=== PATIENT | male | born 1950 | race Caucasian/White ===

== ENCOUNTER 2019-05-24 22:50 | Inpatient (IN) | payer MEDICARE, OTHER ==
[~2019-05-24] VITALS: Ht 170.2 cm; Wt 102.1 kg
[2019-05-24 22:50] VITALS: BP 139/65
[2019-05-24 23:45] LABS: APPEARANCE,URINE CLEAR; BILIRUBIN, URINE NEGATIVE (NEGATIVE); COLOR,URINE PALE YELLOW; GLUCOSE, URINE (UA) NEGATIVE (NEGATIVE); KETONES,URINE NEGATIVE (NEGATIVE); LEUKOCYTE ESTERASE ,URINE NEGATIVE (NEGATIVE); NITRITE,URINE NEGATIVE (NEGATIVE); PH,URINE 5 (4.5-8.0); PROTEIN,URINE 3+ (NEGATIVE); UROBILINOGEN,URINE NORMAL MG/DL (0.0-1.0)
[2019-05-24 23:46] LABS: BASOPHILS % (AUTO) 0.7 % (0.0-2.0); EOSINOPHILS % (AUTO) 0.5 % (0.0-3.0); HEMATOCRIT 32.7 % (42.0-52.0); LYMPHOCYTES % (AUTO) 9.8 % (20.0-45.0); MEAN CORPUSCULAR VOLUME 82 FL (80-99); MONOCYTES % (AUTO) 9.2 % (1.0-10.0); NEUTROPHILS % (AUTO) 79.9 % (45.0-75.0); PLATELET COUNT 323 K/UL (150-450); RED BLOOD COUNT 3.98 M/UL (4.70-6.10); RED CELL DISTRIBUTION WIDTH 13.2 % (11.6-14.8); WHITE BLOOD COUNT 12.2 K/UL (4.8-10.8)
[2019-05-25] VITALS (8 sets, daily range): BP systolic 97–133; BP diastolic 48–69
[2019-05-25 00:14] LABS: ANION GAP 12 mmol/L (5-15); BLOOD UREA NITROGEN 37 mg/dL (7-18); CALCIUM 9.2 MG/DL (8.5-10.1); CARBON DIOXIDE 26 MMOL/L (21-32); CHLORIDE 98 MMOL/L (98-107); POTASSIUM 4.2 MMOL/L (3.5-5.1); SODIUM 136 MMOL/L (136-145)
[2019-05-25 00:22] LABS: ALANINE AMINOTRANSFERASE 19 U/L (12-78); ALBUMIN/GLOBULIN RATIO 0.8 (1.0-2.7); ALKALINE PHOSPHATASE 47 U/L (46-116); ASPARTATE AMINO TRANSFERASE 10 U/L (15-37); BILIRUBIN,TOTAL 0.4 MG/DL (0.2-1.0); CKMB 1.9 NG/ML (0.0-3.6)
--- NOTE | 2019-05-25 00:51 | Emergency Room Report ---
History of Present Illness General Chief Complaint: Chest Pain Source: Patient Present Illness HPI 68-year-old male presents to emergency room with chest pain. Patient reports history of open heart surgery CABG in 2011 status post RI in 2017 with stent placement. Patient reports that he missed his morning medications including his hypertensive medication diuretic, and anticoagulation Pradaxa. He took his nighttime medications as prescribed. Patient reports he is feeling short of breath and having multiple coughing attacks. Patient was given 1 spray nitroglycerin which improves patient's chest pain from 8 out of 10 to 6 out of 10. He was also given 325 mg aspirin. Patient reports his pain is substernal pressure-like sensation, nonradiating. Allergies: Coded Allergies: CLOPIDOGREL (Verified Allergy, Unknown, 05/24/19) Nursing Documentation-PMH Hx Cardiac Problems: Yes - RI Hx Hypertension: Yes Hx Diabetes: Yes Review of Systems Constitutional: Denies: chills, fever Respiratory: Reports: shortness of breath; Denies: cough Cardiovascular: Reports: chest pain; Denies: palpitations Gastrointestinal: Denies: diarrhea, vomiting Genitourinary: Denies: hematuria, pain Musculoskeletal: Denies: joint swelling Skin: Denies: rash, lesions Neurological: Denies: headache, dizziness Physical Exam Vital Signs Date Time Temp Pulse Resp B/P (MAP) Pulse Ox O2 Delivery O2 Flow Rate FiO2 05/24/19 22:44 99.1 73 19 139/65 (89) 95 Room Air Sp02 EP Interpretation: reviewed General Appearance: well appearing, no apparent distress, non-toxic Head: normocephalic, atraumatic Eyes: bilateral eye normal inspection ENT: hearing grossly normal, EOM grossly intact, moist mucus membranes Neck: supple Respiratory: lungs clear, normal breath sounds, no rhonchi, no respiratory distress, no retraction, no accessory muscle use, rales, speaking full sentences Cardiovascular #1: regular rate, rhythm, normal capillary refill, edema - 2+ lower extremity nonpitting Cardiovascular #2: 2+ radial (R), 2+ radial (L) Gastrointestinal: soft, non-distended Rectal: deferred Musculoskeletal: moves extm spontaneously, no lower extremity edema Neurologic: grossly normal Psychiatric: mood/affect normal Skin: warm/dry, normal turgor Medical Decision Making Diagnostic Impression: Primary Impression: Chest pain ER Course 68-year-old male presents with chest pain. Patient has significant history of cardiac disease including CABG and RI. Patient also missed morning medications. Patient found to have lower extremity edema on exam and mild rales. Differential includes ACS versus fluid overload versus atypical chest pain We will perform EKG, lab testing, chest x-ray. Laboratory Tests Test 05/24/19 23:20 White Blood Count 12.2 K/UL (4.8-10.8) H Red Blood Count 3.98 M/UL (4.70-6.10) L Hemoglobin 11.0 G/DL (14.2-18.0) L Hematocrit 32.7 % (42.0-52.0) L Mean Corpuscular Volume 82 FL (80-99) Mean Corpuscular Hemoglobin 27.7 PG (27.0-31.0) Mean Corpuscular Hemoglobin Concent 33.7 G/DL (32.0-36.0) Red Cell Distribution Width 13.2 % (11.6-14.8) Platelet Count 323 K/UL (150-450) Mean Platelet Volume 6.1 FL (6.5-10.1) L Neutrophils (%) (Auto) 79.9 % (45.0-75.0) H Lymphocytes (%) (Auto) 9.8 % (20.0-45.0) L Monocytes (%) (Auto) 9.2 % (1.0-10.0) Eosinophils (%) (Auto) 0.5 % (0.0-3.0) Basophils (%) (Auto) 0.7 % (0.0-2.0) Urine Color Pale yellow Urine Appearance Clear Urine pH 5 (4.5-8.0) Urine Specific [place] 1.010 (1.005-1.035) Urine Protein 3+ (NEGATIVE) H Urine Glucose (UA) Negative (NEGATIVE) Urine Ketones Negative (NEGATIVE) Urine Blood Negative (NEGATIVE) Urine Nitrite Negative (NEGATIVE) Urine Bilirubin Negative (NEGATIVE) Urine Urobilinogen Normal MG/DL (0.0-1.0) Urine Leukocyte Esterase Negative (NEGATIVE) Urine RBC 0-2 /HPF (0 - 0) H Urine WBC 0 /HPF (0 - 0) Urine Squamous Epithelial Cells None /LPF (NONE/OCC) Urine Bacteria None /HPF (NONE) Sodium Level 136 MMOL/L (136-145) Potassium Level 4.2 MMOL/L (3.5-5.1) Chloride Level 98 MMOL/L (98-107) Carbon Dioxide Level 26 MMOL/L (21-32) Anion Gap 12 mmol/L (5-15) Blood Urea Nitrogen 37 mg/dL (7-18) H Creatinine 2.0 MG/DL (0.55-1.30) H Estimate Glomerular Filtration Rate 33.3 mL/min (>60) Glucose Level 108 MG/DL (74-106) H Calcium Level 9.2 MG/DL (8.5-10.1) Total Bilirubin 0.4 MG/DL (0.2-1.0) Aspartate Amino Transferase (AST) 10 U/L (15-37) L Alanine Aminotransferase (ALT) 19 U/L (12-78) Alkaline Phosphatase 47 U/L (46-116) Creatine Kinase MB 1.9 NG/ML (0.0-3.6) Troponin I 0.041 ng/mL (0.000-0.056) Pro-B-Type Natriuretic Peptide 955 pg/mL (0-125) H Total Protein 8.9 G/DL (6.4-8.2) H Albumin 4.0 G/DL (3.4-5.0) Globulin 4.9 g/dL Albumin/Globulin Ratio 0.8 (1.0-2.7) L EKG Diagnostic Results EKG Time: 21:33 Rate: normal Rhythm: NSR Other Impression Normal sinus rhythm rate of 72 T wave inversions lateral leads, mild elevation in lead III Rhythm Strip Diag. Results Rhythm Strip Time: 00:00 EP Interpretation: yes Rate: 62 Rhythm: NSR Reevaluation Time: 00:58 Last Vital Signs Date Time Temp Pulse Resp B/P (MAP) Pulse Ox O2 Delivery O2 Flow Rate FiO2 05/24/19 22:50 99.1 73 19 139/65 95 Room Air Reevaluation Impression Patient's care discussed with Dr. Funk, Pt admitted to telemetry Disposition: ADMITTED INPATIENT Condition: Serious Referrals: [facility],REFERRING (PCP) Jp Jauregui M.D. May 25, 2019 00:51
[2019-05-25] MEDS ORDERED: CYMBALTA20 MG ORAL (03:21)
[2019-05-25] MEDS ORDERED: FENOFIBRATE48 MG ORAL (03:21)
[2019-05-25] MEDS ORDERED: FUROSEMIDE40 MG/5 ML ORAL (03:21)
[2019-05-25] MEDS ORDERED: UROXATRAL10 MG ORAL (03:21)
[2019-05-25] MEDS ORDERED: FERROUS GLUCON324 M1 PO (03:21)
[2019-05-25] MEDS ORDERED: LIORESAL20 MG ORAL (03:21)
[2019-05-25] MEDS ORDERED: ISOSORBIDE MONO20 MG PO (03:21)
[2019-05-25] MEDS ORDERED: EFFIENT10 MG PO (03:21)
[2019-05-25] MEDS ORDERED: NORVASC5 MG ORAL (03:21)
[2019-05-25] MEDS ORDERED: POTASSIUM99 M3 PO (03:21)
[2019-05-25] MEDS ORDERED: BENAZEPRIL HCL40 MG ORAL (03:21)
[2019-05-25] MEDS ORDERED: RANEXA1000 MG ORAL (03:21)
[2019-05-25] MEDS ORDERED: NOVOLIN 70100 UNIT/1 SUBQ (03:21)
[2019-05-25] MEDS ORDERED: MAGNESIUM100 MG PO (03:21)
[2019-05-25] MEDS ORDERED: COREG6.25 MG ORAL (03:21)
[2019-05-25] MEDS ORDERED: OMEPRAZOLE20 M2 ORAL (03:21)
[2019-05-25] MEDS ORDERED: TRAMADOL HCL50 MG ORAL (03:21)
[2019-05-25] MEDS ORDERED: PRADAXA110 MG PO (03:21)
[2019-05-25] MEDS ORDERED: LIPITOR80 MG ORAL (03:21)
[2019-05-25] MEDS ORDERED: traMADol 50mg tab ORAL PRN (08:00)
[2019-05-25] MEDS ORDERED: Ferrous Gluconate 324 MG TAB ORAL SCH (09:00)
[2019-05-25] MEDS ORDERED: Imdur 30mg tab ORAL SCH (09:00)
[2019-05-25] MEDS ORDERED: Mag Plus Protein 133mg Tab ORAL SCH (09:00)
[2019-05-25 10:10] LABS: ALANINE AMINOTRANSFERASE 18 U/L (12-78); ALBUMIN 3.6 G/DL (3.4-5.0); ALBUMIN/GLOBULIN RATIO 0.8 (1.0-2.7); ALKALINE PHOSPHATASE 45 U/L (46-116); ANION GAP 9 mmol/L (5-15); ASPARTATE AMINO TRANSFERASE 12 U/L (15-37); BILIRUBIN,TOTAL 0.5 MG/DL (0.2-1.0); BLOOD UREA NITROGEN 41 mg/dL (7-18); CALCIUM 8.9 MG/DL (8.5-10.1); CARBON DIOXIDE 27 MMOL/L (21-32); CHLORIDE 100 MMOL/L (98-107); CHOLESTEROL 145 MG/DL (< 200); CREATININE 2.2 MG/DL (0.55-1.30); HDL CHOLESTEROL 35 MG/DL (40-60); PHOSPHORUS 3.7 MG/DL (2.5-4.9); POTASSIUM 3.8 MMOL/L (3.5-5.1); SODIUM 136 MMOL/L (136-145); TRIGLYCERIDES 189 MG/DL (30-150)
[2019-05-25] MEDS: Ranolazine 500mg tab ORAL SCH ×2 (10:21→20:30)
[2019-05-25] MEDS: Aspirin Baby 81mg ORAL SCH (10:21)
[2019-05-25] MEDS: Furosemide 40mg tab ORAL SCH (10:22)
[2019-05-25] MEDS: Imdur 30mg tab ORAL SCH ×3 (10:36→18:18)
[2019-05-25] MEDS: Dabigatran 150mg cap ORAL SCH ×2 (11:00→20:30)
--- NOTE | 2019-05-25 12:24 | Consultation ---
History of Present Illness General Date patient seen: May 25, 2019 Chief Complaint: Chest Pain Present Illness HPI 68-year-old male with hx of open heart surgery CABG in 2010 status post OR in 2017 with stent presented to ER with chest pain. He missed his morning medications including his hypertensive medication diuretic, and anticoagulation Pradaxa. he is feeling short of breath and having multiple coughing attacks. Patient was given 1 spray nitroglycerin which improves patient's chest pain from 8 out of 10 to 6 out of 10. He was also given 325 mg aspirin. Patient reports his pain is substernal pressure-like sensation, nonradiating Allergies: Coded Allergies: CLOPIDOGREL (Verified Allergy, Unknown, 05/24/19) Medication History Scheduled Alfuzosin 10Mg (Uroxatral), 10 MG ORAL DAILY, (Reported) Amlodipine Besylate (Norvasc), 5 MG ORAL DAILY, (Reported) Atorvastatin (Lipitor), 80 MG ORAL BEDTIME, (Reported) Baclofen (Baclofen), 10 MG ORAL TWICE A DAY, (Reported) Benazepril Hcl* (Benazepril Hcl*), 40 MG ORAL DAILY, (Reported) Carvedilol (Coreg), 6.25 MG ORAL TWICE A DAY, (Reported) Dabigatran Etexilate Mesylate (Pradaxa), 150 MG PO TWICE A DAY, (Reported) Duloxetine (Cymbalta), 60 MG ORAL DAILY, (Reported) Fenofibrate Nanocrystallized (Fenofibrate), 48 MG ORAL DAILY, (Reported) Ferrous Gluconate (Ferrous Gluconate), 324 MG PO DAILY, (Reported) Furosemide (Furosemide), 40 MG ORAL DAILY, (Reported) Hum Insulin Nph/Reg Insulin Hm (Novolin 70-30 100 Unit/Ml Vial), 240 SUBQ BEFORE DINNER, (Reported) Isosorbide Mononitrate (Isosorbide Mononitrate), 60 MG PO TID, (Reported) Magnesium Amino Acid Chelate (Magnesium), 64 MG PO TWICE A DAY, (Reported) Omeprazole (Omeprazole), 20 MG ORAL DAILY, (Reported) Potassium Gluconate (Potassium), 10 MEQ PO DAILY, (Reported) Prasugrel Hcl (Effient), 10 MG PO DAILY, (Reported) Ranolazine (Ranexa), 500 MG ORAL TWICE A DAY, (Reported) Tramadol Hcl* (Ultram*), 50 MG ORAL Q6H, (Reported) Patient History Healthcare decision maker Resuscitation status Advanced Directive on File Past Medical/Surgical History Past Medical/Surgical History: (1) History of hypertension (2) Depression (3) Diabetes mellitus (4) Stented coronary artery (5) Hx of CABG Review of Systems Constitutional: Reports: no symptoms Physical Exam General Appearance: WD/WN, no apparent distress Lines, tubes and drains: peripheral HEENT: normocephalic Neck: non-tender Respiratory/Chest: chest wall non-tender Breasts: no masses Cardiovascular/Chest: normal peripheral pulses Abdomen: normal bowel sounds Genitourinary/Rectal: normal genital exam Last 24 Hour Vital Signs Date Time Temp Pulse Resp B/P (MAP) Pulse Ox O2 Delivery O2 Flow Rate FiO2 05/25/19 10:36 124/69 05/25/19 10:21 63 124/69 05/25/19 10:18 63 124/69 (87) 05/25/19 09:00 74 05/25/19 08:00 98.1 67 20 97/51 (66) 91 05/25/19 04:00 99.0 18 18 115/58 (77) 96 05/25/19 04:00 68 05/25/19 03:46 Room Air 05/25/19 03:41 Room Air 05/25/19 03:05 99.1 63 19 109/63 95 Room Air 05/25/19 02:17 99.1 63 19 109/63 95 Room Air 05/25/19 01:00 99.1 69 19 118/65 95 Room Air 05/24/19 22:50 99.1 73 19 139/65 95 Room Air 05/24/19 22:50 73 19 Room Air 05/24/19 22:44 99.1 73 19 139/65 (89) 95 Room Air Intake and Output 05/24/19 05/25/19 19:00 07:00 # Voids 1 Laboratory Tests Test 05/24/19 23:20 05/25/19 09:35 White Blood Count 12.2 K/UL (4.8-10.8) H Pending Red Blood Count 3.98 M/UL (4.70-6.10) L Pending Hemoglobin 11.0 G/DL (14.2-18.0) L Pending Hematocrit 32.7 % (42.0-52.0) L Pending Mean Corpuscular Volume 82 FL (80-99) Pending Mean Corpuscular Hemoglobin 27.7 PG (27.0-31.0) Pending Mean Corpuscular Hemoglobin Concent 33.7 G/DL (32.0-36.0) Pending Red Cell Distribution Width 13.2 % (11.6-14.8) Pending Platelet Count 323 K/UL (150-450) Pending Mean Platelet Volume 6.1 FL (6.5-10.1) L Pending Neutrophils (%) (Auto) 79.9 % (45.0-75.0) H Pending Lymphocytes (%) (Auto) 9.8 % (20.0-45.0) L Pending Monocytes (%) (Auto) 9.2 % (1.0-10.0) Pending Eosinophils (%) (Auto) 0.5 % (0.0-3.0) Pending Basophils (%) (Auto) 0.7 % (0.0-2.0) Pending Urine Color Pale yellow Urine Appearance Clear Urine pH 5 (4.5-8.0) Urine Specific [place] 1.010 (1.005-1.035) Urine Protein 3+ (NEGATIVE) H Urine Glucose (UA) Negative (NEGATIVE) Urine Ketones Negative (NEGATIVE) Urine Blood Negative (NEGATIVE) Urine Nitrite Negative (NEGATIVE) Urine Bilirubin Negative (NEGATIVE) Urine Urobilinogen Normal MG/DL (0.0-1.0) Urine Leukocyte Esterase Negative (NEGATIVE) Urine RBC 0-2 /HPF (0 - 0) H Urine WBC 0 /HPF (0 - 0) Urine Squamous Epithelial Cells None /LPF (NONE/OCC) Urine Bacteria None /HPF (NONE) Sodium Level 136 MMOL/L (136-145) 136 MMOL/L (136-145) Potassium Level 4.2 MMOL/L (3.5-5.1) 3.8 MMOL/L (3.5-5.1) Chloride Level 98 MMOL/L (98-107) 100 MMOL/L (98-107) Carbon Dioxide Level 26 MMOL/L (21-32) 27 MMOL/L (21-32) Anion Gap 12 mmol/L (5-15) 9 mmol/L (5-15) Blood Urea Nitrogen 37 mg/dL (7-18) H 41 mg/dL (7-18) H Creatinine 2.0 MG/DL (0.55-1.30) H 2.2 MG/DL (0.55-1.30) H Estimat Glomerular Filtration Rate 33.3 mL/min (>60) 29.8 mL/min (>60) Glucose Level 108 MG/DL (74-106) H 171 MG/DL (74-106) H Calcium Level 9.2 MG/DL (8.5-10.1) 8.9 MG/DL (8.5-10.1) Total Bilirubin 0.4 MG/DL (0.2-1.0) 0.5 MG/DL (0.2-1.0) Aspartate Amino Transf (AST/SGOT) 10 U/L (15-37) L 12 U/L (15-37) L Alanine Aminotransferase (ALT/SGPT) 19 U/L (12-78) 18 U/L (12-78) Alkaline Phosphatase 47 U/L (46-116) 45 U/L (46-116) L Creatine Kinase MB 1.9 NG/ML (0.0-3.6) Troponin I 0.041 ng/mL (0.000-0.056) 0.111 ng/mL (0.000-0.056) Pro-B-Type Natriuretic Peptide 955 pg/mL (0-125) H Total Protein 8.9 G/DL (6.4-8.2) H 8.1 G/DL (6.4-8.2) Albumin 4.0 G/DL (3.4-5.0) 3.6 G/DL (3.4-5.0) Globulin 4.9 g/dL 4.5 g/dL Albumin/Globulin Ratio 0.8 (1.0-2.7) L 0.8 (1.0-2.7) L Phosphorus Level 3.7 MG/DL (2.5-4.9) Magnesium Level 1.8 MG/DL (1.8-2.4) Triglycerides Level 189 MG/DL (30-150) H Cholesterol Level 145 MG/DL (< 200) LDL Cholesterol 74 mg/dL (<100) HDL Cholesterol 35 MG/DL (40-60) L Cholesterol/HDL Ratio 4.1 (3.3-4.4) Height (Feet): 5 Height (Inches): 7.00 Weight (Pounds): 225 Medications Current Medications Medications (Trade) Dose Ordered Sig/Sebastian Route PRN Reason Start Time Stop Time Status Last Admin Dose Admin Amino Acids/ Magnesium (Mg-Plus) 64 mg BID ORAL 05/25/19 09:00 06/24/19 08:59 UNV Aspirin (ASA) 81 mg DAILY ORAL 05/25/19 09:00 06/24/19 08:59 05/25/19 10:21 Atorvastatin Calcium (Lipitor) 80 mg BEDTIME ORAL 05/25/19 21:00 06/24/19 20:59 Baclofen (Lioresal) 20 mg BID ORAL 05/25/19 09:00 06/24/19 08:59 05/25/19 10:21 Carvedilol (Coreg) 3.125 mg EVERY 12 HOURS ORAL 05/25/19 09:00 06/24/19 08:59 05/25/19 10:21 Dabigatran (Pradaxa) 150 mg EVERY 12 HOURS ORAL 05/25/19 11:00 06/24/19 10:59 05/25/19 11:00 Duloxetine HCl (Cymbalta) 60 mg DAILY ORAL 05/25/19 09:00 06/24/19 08:59 05/25/19 10:21 Fenofibrate (Tricor) 48 mg DAILY ORAL 05/25/19 09:00 06/24/19 08:59 UNV Ferrous Gluconate (Fergon) 324 mg DAILY ORAL 05/25/19 09:00 06/24/19 08:59 05/25/19 10:36 Furosemide (Lasix) 40 mg DAILY ORAL 05/25/19 09:00 06/24/19 08:59 05/25/19 10:22 Isosorbide Mononitrate (Imdur) 60 mg TID ORAL 05/25/19 09:00 06/24/19 08:59 Future hold 05/25/19 10:36 Potassium Chloride (K-Dur) 10 meq DAILY ORAL 05/25/19 09:00 06/24/19 08:59 05/25/19 10:22 Ranolazine (Ranexa ER 500mg) 500 mg Q12HR ORAL 05/25/19 09:00 06/24/19 08:59 05/25/19 10:21 Tramadol HCl (Ultram) 50 mg Q6H PRN ORAL Breakthrough pain 05/25/19 08:00 06/01/19 07:59 Assessment/Plan Problem List: (1) ACS (acute coronary syndrome) ICD Codes: I24.9 - Acute ischemic heart disease, unspecified SNOMED: 123199695 (2) Diabetes mellitus ICD Codes: E11.9 - Type 2 diabetes mellitus without complications SNOMED: 80375788 (3) CAD (coronary artery disease) ICD Codes: I25.10 - Atherosclerotic heart disease of [place] coronary artery without angina pectoris SNOMED: 70633113 (4) Chronic anticoagulation 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 SNOMED: 917327299 (5) Hx of CABG ICD Codes: Z95.1 - Presence of aortocoronary bypass graft SNOMED: 138934253, 470416058 (6) Stented coronary artery ICD Codes: Z95.5 - Presence of coronary angioplasty implant and graft SNOMED: 49264899, 255212229 (7) History of OR (myocardial infarction) ICD Codes: I25.2 - Old myocardial infarction SNOMED: 929017933 (8) History of hypertension ICD Codes: Z86.79 - Personal history of other diseases of the circulatory system SNOMED: 278607492 (9) Depression ICD Codes: F32.9 - Major depressive disorder, single episode, unspecified SNOMED: 48064035 Assessment/Plan: serial ekg, troponin, echo cardiology to see f/u wbc monitor BP continue antihypertensive and antiplatelet agents dvt prophylaxis. Deisy Kan MD May 25, 2019 12:23
[2019-05-25 13:27] LABS: CREATINE KINASE 96 U/L (26-308)
--- NOTE | 2019-05-25 13:27 | Diagnostic Imaging Report ---
Indication: Dyspnea Comparison: None A single view chest radiograph was obtained. Findings: No definite infiltrate or pulmonary vascular congestion identified. Sternotomy noted. The heart is enlarged. The aorta is mildly enlarged consistent with atherosclerotic vascular disease. The bones are osteopenic. Impression: No acute disease
--- NOTE | 2019-05-25 16:08 | Diagnostic Imaging Report ---
Indication:Elevated Bun and Creatinine. Technique: Grayscale and duplex Doppler imaging of the kidneys performed. Comparison: None Findings: The size, contour, and echogenicity of both kidneys are within normal limits. There is no hydronephrosis.. The right kidney measures 11 cm. in length. The left kidney measures 10.8 cm. in length. There are multiple tiny cysts in both kidneys. The IVC is patent. Urinary bladder is unremarkable. IMPRESSION: Negative ultrasound the kidneys. Renal cysts
--- NOTE | 2019-05-25 16:52 | Consultation ---
Consult Note Consult Note I was asked to eval at the request of dr live for elevated Cr patient interviewed and examined patient friend at bed side patient knows and was told to have had kidney problem in the past admitted to [facility] for chest pain has BPH and cardiac disease ER 68-year-old male presents to emergency room with chest pain. Patient reports history of open heart surgery CABG in 2010 status post [place] in 2017 with stent placement. Patient reports that he missed his morning medications including his hypertensive medication diuretic, and anticoagulation Pradaxa. He took his nighttime medications as prescribed. Patient reports he is feeling short of breath and having multiple coughing attacks. Patient was given 1 spray nitroglycerin which improves patient's chest pain from 8 out of 10 to 6 out of 10. He was also given 325 mg aspirin. Patient reports his pain is substernal pressure-like sensation, nonradiating. Allergies: CLOPIDOGREL (Verified Allergy, Unknown, 05/24/19) Hx Cardiac Problems: Yes - SC Hx Hypertension: Yes Hx Diabetes: Yes Assessment/Plan Renal failure: Likely chronic due to Diabetic and Hypertensive kidney disease ( 3+ Protein) Partly acute due to cardiac issue and diuretics ACS / CAD / s/p CABGS DM HTN Depression Anemia CHF , Cardiomyopathy with Ej Fx 40% 2D echo Kidney MAIKEL avoid nephrotoxics BP and BS in check Urine studies per orders Nguyễn De La Rosa MD May 25, 2019 16:52
[2019-05-25] MEDS: Docusate 100mg cap ORAL SCH (18:18)
[2019-05-25] MEDS: Magnesium Chloride w/Calcium Tab ORAL SCH (18:18)
--- NOTE | 2019-05-25 18:42 | History & Physical ---
History and Physical History & Physicial Dictated for Int Med-Dr Galdamez no. [id number] Marco Damico MD May 25, 2019 18:42
[2019-05-25] MEDS ORDERED: Tamsulosin 0.4mg cap ORAL SCH (21:00)
[2019-05-25] MEDS ORDERED: Atorvastatin 80mg tab ORAL SCH (21:00)
[2019-05-25 21:33] LABS: APPEARANCE,URINE CLEAR; COLOR,URINE PALE YELLOW
[2019-05-25 21:34] LABS: BILIRUBIN, URINE NEGATIVE (NEGATIVE); GLUCOSE, URINE (UA) NEGATIVE (NEGATIVE); KETONES,URINE NEGATIVE (NEGATIVE); LEUKOCYTE ESTERASE ,URINE NEGATIVE (NEGATIVE); NITRITE,URINE NEGATIVE (NEGATIVE); PH,URINE 5 (4.5-8.0); PROTEIN,URINE NEGATIVE (NEGATIVE); UROBILINOGEN,URINE NORMAL MG/DL (0.0-1.0)
[2019-05-26] VITALS: BP 135/73
[2019-05-26 04:00] VITALS: BP_SYST 130; BP_DIAS 7; BP_DIAS 75
--- NOTE | 2019-05-26 07:11 | Cardiology Progress Note ---
Assessment/Plan Assessment/Plan cp ./ nstemi cad s/p cabg and stent hs of afib s/p cardioversion htn dm renal insuf ? chronicity bph hep b/c hs of substanc abuse quit 1979 admission ekg sig abn and concerning no old ekt to compare , repeat trop and ekg ntp asa statin , may need invasive evaluation in setting of his abn ekg no ekg available here or at [facility] for comparison [id number] Objective Last 24 Hour Vital Signs Date Time Temp Pulse Resp B/P (MAP) Pulse Ox O2 Delivery O2 Flow Rate FiO2 05/26/19 04:00 97.8 71 20 130/75 (93) 98 05/26/19 03:40 55 05/26/19 00:00 98.2 63 20 135/73 (93) 98 05/25/19 23:31 62 05/25/19 21:00 Room Air 05/25/19 20:33 61 125/60 05/25/19 20:00 98.2 61 20 125/60 (81) 96 05/25/19 19:04 62 05/25/19 18:18 124/48 05/25/19 16:00 97.1 59 20 124/48 (73) 96 05/25/19 16:00 53 05/25/19 13:00 135/64 05/25/19 12:00 97.8 70 20 133/55 (81) 98 05/25/19 12:00 57 05/25/19 10:36 124/69 05/25/19 10:21 63 124/69 05/25/19 10:18 63 124/69 (87) 05/25/19 09:00 Room Air 05/25/19 09:00 74 05/25/19 08:00 98.1 67 20 97/51 (66) 91 Intake and Output 05/25/19 05/26/19 19:00 07:00 Intake Total 390 ml Balance 390 ml Intake Oral 390 ml # Voids 2 3 Laboratory Tests Test 05/25/19 09:35 05/25/19 20:41 White Blood Count Pending Red Blood Count Pending Hemoglobin Pending Hematocrit Pending Mean Corpuscular Volume Pending Mean Corpuscular Hemoglobin Pending Mean Corpuscular Hemoglobin Concent Pending Red Cell Distribution Width Pending Platelet Count Pending Mean Platelet Volume Pending Neutrophils (%) (Auto) Pending Lymphocytes (%) (Auto) Pending Monocytes (%) (Auto) Pending Eosinophils (%) (Auto) Pending Basophils (%) (Auto) Pending Sodium Level 136 MMOL/L (136-145) Potassium Level 3.8 MMOL/L (3.5-5.1) Chloride Level 100 MMOL/L (98-107) Carbon Dioxide Level 27 MMOL/L (21-32) Anion Gap 9 mmol/L (5-15) Blood Urea Nitrogen 41 mg/dL (7-18) H Creatinine 2.2 MG/DL (0.55-1.30) H Estimat Glomerular Filtration Rate 29.8 mL/min (>60) Glucose Level 171 MG/DL (74-106) H Uric Acid 8.9 MG/DL (2.6-7.2) H Calcium Level 8.9 MG/DL (8.5-10.1) Phosphorus Level 3.7 MG/DL (2.5-4.9) Magnesium Level 1.8 MG/DL (1.8-2.4) Total Bilirubin 0.5 MG/DL (0.2-1.0) Aspartate Amino Transf (AST/SGOT) 12 U/L (15-37) L Alanine Aminotransferase (ALT/SGPT) 18 U/L (12-78) Alkaline Phosphatase 45 U/L (46-116) L Total Creatine Kinase 96 U/L (26-308) Troponin I 0.111 ng/mL (0.000-0.056) Total Protein 8.1 G/DL (6.4-8.2) Albumin 3.6 G/DL (3.4-5.0) Globulin 4.5 g/dL Albumin/Globulin Ratio 0.8 (1.0-2.7) L Triglycerides Level 189 MG/DL (30-150) H Cholesterol Level 145 MG/DL (< 200) LDL Cholesterol 74 mg/dL (<100) HDL Cholesterol 35 MG/DL (40-60) L Cholesterol/HDL Ratio 4.1 (3.3-4.4) Urine Color Pale yellow Urine Appearance Clear Urine pH 5 (4.5-8.0) Urine Specific [place] 1.015 (1.005-1.035) Urine Protein Negative (NEGATIVE) Urine Glucose (UA) Negative (NEGATIVE) Urine Ketones Negative (NEGATIVE) Urine Blood Negative (NEGATIVE) Urine Nitrite Negative (NEGATIVE) Urine Bilirubin Negative (NEGATIVE) Urine Urobilinogen Normal MG/DL (0.0-1.0) Urine Leukocyte Esterase Negative (NEGATIVE) Urine RBC 0-2 /HPF (0 - 0) H Urine WBC 0-2 /HPF (0 - 0) Urine Squamous Epithelial Cells None /LPF (NONE/OCC) Urine Bacteria Few /HPF (NONE) Urine Eosinophils None seen (NONE SEEN) Urine Osmolality 342 mOsm/kg (429-449) L Urine Random Creatinine Pending Urine Random Microalbumin Pending Urine Random Sodium 60 mmol/L (20-110) Urine Microalbumin/Creatinine Ratio Pending Akash Bill MD May 26, 2019 07:11
--- NOTE | 2019-05-26 07:17 | History and Physical Report ---
DATE OF ADMISSION: 05/25/2019 CHIEF COMPLAINT: The patient is a 68-year-old white male, who presents with a chief complaint of chest pain. HISTORY OF PRESENT ILLNESS: The patient has a history of coronary artery disease. The patient is status post coronary artery bypass graft. The patient states history of present illness began approximately 7:30 on 05/24/2019. The patient began to experience chest pain. Chest pain was substernal. There was no radiation to the jaw or to the shoulder. The patient states chest pain lasted approximately 2 hours. The patient presented to [facility] emergency room. The patient is admitted for chest pain rule out acute coronary syndrome. REVIEW OF SYSTEMS: CONSTITUTIONAL: The patient denies weight loss or weight gain. The patient denies fevers or chills. HEENT: The patient denies ear or throat pain. The patient denies headache. CARDIOVASCULAR: The patient complains of chest pain as above. The patient denies palpitations. ABDOMEN: The patient denies nausea, vomiting, diarrhea, or constipation. GENITOURINARY: The patient denies dysuria or increased frequency of urination. NEUROMUSCULAR: The patient denies seizures or generalized weakness. PAST MEDICAL HISTORY: Significant for: 1. Coronary artery disease, status post myocardial infarction in 2010. 2. Diabetes type 2. 3. Hypertension. 4. Chronic obstructive pulmonary disease. PAST SURGICAL HISTORY: Significant for: 1. Coronary artery bypass graft in 2010. 2. Cardiac angioplasty with stent placed in 2015. CURRENT MEDICATIONS: 1. Alfuzosin 10 mg p.o. daily. 2. Amlodipine 5 mg p.o. daily. 3. Atorvastatin 80 mg p.o. daily. 4. Baclofen 20 mg p.o. twice daily p.r.n. 5. Benazepril 40 mg p.o. daily. 6. Carvedilol 6.25 mg p.o. twice daily. 7. Pradaxa 150 mg p.o. twice daily. 8. Duloxetine 60 mg p.o. daily. 9. Fenofibrate 48 mg p.o. daily. 10. Iron gluconate 324 mg p.o. daily. 11. Furosemide 40 mg p.o. daily. 12. NPH insulin. 13. Novolin 70/30 insulin 24 units subcutaneously at bedtime. 14. Isosorbide mononitrate 60 mg p.o. 3 times daily. 15. Magnesium 64 mg p.o. twice daily. 16. Omeprazole 20 mg p.o. daily. 17. Potassium gluconate 10 mEq p.o. daily. 18. Effient 10 mg p.o. daily. 19. Ranexa 500 mg p.o. twice daily. 20. Tramadol 50 mg p.o. q.6 hours p.r.n. ALLERGIES: To clopidogrel. SOCIAL HISTORY: The patient is . The patient denies tobacco use having quit in 2010. The patient denies alcohol use. PHYSICAL EXAMINATION: VITAL SIGNS: Temperature 99.1, respirations 19, pulse 73, blood pressure 139/65. GENERAL: The patient is well-developed, well-nourished white male, in no apparent distress. HEENT: Eyes, pupils are equal and responsive to light and accommodation. Extraocular movements are intact. NECK: Supple without lymphadenopathy. CHEST: Lungs are clear to auscultation bilaterally without wheezes or rales. CARDIOVASCULAR: Regular rhythm and rate. S1, S2 are normal without murmurs, rubs, or gallops. ABDOMEN: Soft, nontender, and nondistended. Positive bowel sounds. No evidence of hepatosplenomegaly. Currently, no rebound or guarding noted. EXTREMITIES: Negative for clubbing, cyanosis, or edema. NEUROMUSCULAR: Cranial nerves II through XII are grossly intact without focal deficits. Motor strength is 5/5 bilaterally. Deep tendon reflexes are 2+ plantar. RECTAL/GENITAL: Refused. LABORATORY STUDIES: WBC 12.2, hemoglobin 11.0, hematocrit 32.7, platelets 323,000. Sodium 136, potassium 4.2, chloride 98, CO2 26, BUN 37, creatinine 2.0, glucose 108. BNP elevated at 955. Troponin 0.041. Chest x-ray was reported as no acute disease. EKG demonstrated normal sinus rhythm with sinus arrhythmia. There are no acute ST changes or Q-waves noted. ASSESSMENT: This is a 68-year-old white male. 1. Chest pain. 2. Coronary artery disease. 3. Congestive heart failure. 4. Acute renal failure. 5. Diabetes type 2. 6. Hypertension. TREATMENT: 1. Chest pain/history of coronary artery disease/congestive heart failure. Cardiology consultation has been obtained with Dr. Akash Bill. The patient states he had a recent stress test. We will follow recommendations of Cardiology. 2. Diabetes type 2. A NovoLog sliding scale has been instituted. 3. Acute renal failure. A Nephrology consultation is pending with Dr. Nguyễn De La Rosa. 4. Hypertension. Continue Coreg as above. Marco Damico M.D. DR: CARIN JOB#: [id number] CC:
[2019-05-26 07:34] LABS: HEMOGLOBIN 9.8 G/DL (14.2-18.0); RED BLOOD COUNT 3.69 M/UL (4.70-6.10); WHITE BLOOD COUNT 7.7 K/UL (4.8-10.8)
[2019-05-26 07:35] LABS: BASOPHILS % (AUTO) 0.5 % (0.0-2.0); EOSINOPHILS % (AUTO) 0.1 % (0.0-3.0); MEAN CORPUSCULAR VOLUME 89 FL (80-99); MONOCYTES % (AUTO) 11.4 % (1.0-10.0); NEUTROPHILS % (AUTO) 66.7 % (45.0-75.0); PLATELET COUNT 295 K/UL (150-450); RED CELL DISTRIBUTION WIDTH 14.8 % (11.6-14.8)
[2019-05-26 08:00] VITALS: BP 150/98
[2019-05-26 08:05] LABS: BASOPHILS % (AUTO) 0.7 % (0.0-2.0); EOSINOPHILS % (AUTO) 1.5 % (0.0-3.0); HEMATOCRIT 31.7 % (42.0-52.0); HEMOGLOBIN 10.6 G/DL (14.2-18.0); LYMPHOCYTES % (AUTO) 27.7 % (20.0-45.0); MEAN CORPUSCULAR VOLUME 82 FL (80-99); MONOCYTES % (AUTO) 12.5 % (1.0-10.0); NEUTROPHILS % (AUTO) 57.5 % (45.0-75.0); PLATELET COUNT 303 K/UL (150-450); RED BLOOD COUNT 3.85 M/UL (4.70-6.10); RED CELL DISTRIBUTION WIDTH 13.3 % (11.6-14.8); WHITE BLOOD COUNT 8.7 K/UL (4.8-10.8)
[2019-05-26 08:20] LABS: CREATINE KINASE 89 U/L (26-308); GAMMA GLUTAMYL TRANSPEPTIDASE 21 U/L (5-85)
[2019-05-26 08:37] LABS: ALANINE AMINOTRANSFERASE 19 U/L (12-78); ALBUMIN 3.7 G/DL (3.4-5.0); ALBUMIN/GLOBULIN RATIO 0.8 (1.0-2.7); ALKALINE PHOSPHATASE 38 U/L (46-116); ANION GAP 10 mmol/L (5-15); ASPARTATE AMINO TRANSFERASE 15 U/L (15-37); BILIRUBIN,TOTAL 0.6 MG/DL (0.2-1.0); BLOOD UREA NITROGEN 37 mg/dL (7-18); CALCIUM 8.7 MG/DL (8.5-10.1); CARBON DIOXIDE 25 MMOL/L (21-32); CHLORIDE 100 MMOL/L (98-107); CREATININE 2.2 MG/DL (0.55-1.30); FERRITIN 58 NG/ML (8-388); PHOSPHORUS 4.6 MG/DL (2.5-4.9); POTASSIUM 3.9 MMOL/L (3.5-5.1); SODIUM 135 MMOL/L (136-145)
[2019-05-26 08:56] LABS: % IRON SATURATION 10 % (15-50); IRON 33 ug/dL (50-175); TOTAL IRON BINDING CAPACITY 333 ug/dL (250-450)
[2019-05-26] MEDS: Docusate 100mg cap ORAL SCH ×3 (09:27→19:44)
[2019-05-26] MEDS: Imdur 30mg tab ORAL SCH ×3 (09:27→19:44)
[2019-05-26] MEDS: Furosemide 40mg tab ORAL SCH (09:28)
[2019-05-26] MEDS: Magnesium Chloride w/Calcium Tab ORAL SCH ×2 (09:28→19:44)
[2019-05-26] MEDS: Aspirin Baby 81mg ORAL SCH (09:28)
[2019-05-26] MEDS: Ranolazine 500mg tab ORAL SCH (09:28)
[2019-05-26 12:00] VITALS: BP 135/97
--- NOTE | 2019-05-26 12:03 | Pulmonology Progress Note ---
Assessment/Plan Problems: (1) ACS (acute coronary syndrome) (2) Diabetes mellitus (3) CAD (coronary artery disease) (4) Chronic anticoagulation (5) Hx of CABG (6) Stented coronary artery (7) History of [place] (myocardial infarction) (8) History of hypertension (9) Depression Assessment/Plan needs cardiac cath b/o of hx of CABG and STents in the past symptomatic management monitor BP symptomatic treatment. dvt prophylaxis. Subjective ROS Limited/Unobtainable: No Constitutional: Reports: no symptoms HEENT: Repors: no symptoms Respiratory: Reports: no symptoms Allergies: Coded Allergies: CLOPIDOGREL (Verified Allergy, Unknown, 05/24/19) Objective Last 24 Hour Vital Signs Date Time Temp Pulse Resp B/P (MAP) Pulse Ox O2 Delivery O2 Flow Rate FiO2 05/26/19 09:27 150/98 05/26/19 09:27 59 150/98 05/26/19 08:47 Room Air 05/26/19 08:00 97.9 59 20 150/98 (115) 98 05/26/19 07:43 59 05/26/19 04:00 97.8 71 20 130/75 (93) 98 05/26/19 03:40 55 05/26/19 00:00 98.2 63 20 135/73 (93) 98 05/25/19 23:31 62 05/25/19 21:00 Room Air 05/25/19 20:33 61 125/60 05/25/19 20:00 98.2 61 20 125/60 (81) 96 05/25/19 19:04 62 05/25/19 18:18 124/48 05/25/19 16:00 97.1 59 20 124/48 (73) 96 05/25/19 16:00 53 05/25/19 13:00 135/64 Intake and Output 05/25/19 05/26/19 19:00 07:00 Intake Total 390 ml Balance 390 ml Intake Oral 390 ml # Voids 2 3 General Appearance: WD/WN HEENT: normocephalic, atraumatic Respiratory/Chest: chest wall non-tender, lungs clear Cardiovascular: normal peripheral pulses, normal rate Abdomen: normal bowel sounds, soft, non tender Genitourinary: normal external genitalia Extremities: no clubbing 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 Laboratory Tests 05/25/19 20:41: Urine Color Pale yellow, Urine Appearance Clear, Urine pH 5, Urine Specific [place] 1.015, Urine Protein Negative, Urine Glucose (UA) Negative, Urine Ketones Negative, Urine Blood Negative, Urine Nitrite Negative, Urine Bilirubin Negative, Urine Urobilinogen Normal, Urine Leukocyte Esterase Negative, Urine RBC 0-2H, Urine WBC 0-2, Urine Squamous Epithelial Cells None, Urine Bacteria Few, Urine Eosinophils None seen, Urine Osmolality 342L, Urine Random Creatinine [Pending], Urine Random Microalbumin [Pending], Urine Random Sodium 60, Urine Microalbumin/Creatinine Ratio [Pending] 05/26/19 06:16: White Blood Count 8.7, Red Blood Count 3.85L, Hemoglobin 10.6L, Hematocrit 31.7L , Mean Corpuscular Volume 82, Mean Corpuscular Hemoglobin 27.6, Mean Corpuscular Hemoglobin Concent 33.6, Red Cell Distribution Width 13.3, Platelet Count 303, Mean Platelet Volume 6.2L, Neutrophils (%) (Auto) 57.5, Lymphocytes ( %) (Auto) 27.7, Monocytes (%) (Auto) 12.5H, Eosinophils (%) (Auto) 1.5, Basophils (%) (Auto) 0.7, Erythrocyte Sedimentation Rate 42H, Sodium Level 135L , Potassium Level 3.9, Chloride Level 100, Carbon Dioxide Level 25, Anion Gap 10 , Blood Urea Nitrogen 37H, Creatinine 2.2H, Estimat Glomerular Filtration Rate 29.8, Glucose Level 138H, Hemoglobin A1c 6.5H, Uric Acid 10.0H, Calcium Level 8.7, Phosphorus Level 4.6, Magnesium Level 1.8, Iron Level 33L, Total Iron Binding Capacity 333, Percent Iron Saturation 10L, Unsaturated Iron Binding 300 , Ferritin 58, Total Bilirubin 0.6, Gamma Glutamyl Transpeptidase 21, Aspartate Amino Transf (AST/SGOT) 15, Alanine Aminotransferase (ALT/SGPT) 19, Alkaline Phosphatase 38L, Total Creatine Kinase 89, Troponin I 0.041, C-Reactive Protein , Quantitative 1.8H, Pro-B-Type Natriuretic Peptide [Pending], Total Protein 8.5H, Albumin 3.7, Globulin 4.8, Albumin/Globulin Ratio 0.8L, Vitamin B12 Level 438, Folate [Pending], Thyroid Stimulating Hormone (TSH) 1.422 Current Medications Medications (Trade) Dose Ordered Sig/Sebastian Route PRN Reason Start Time Stop Time Status Last Admin Dose Admin Aspirin (ASA) 81 mg DAILY ORAL 05/25/19 09:00 06/24/19 08:59 05/26/19 09:28 Atorvastatin Calcium (Lipitor) 80 mg BEDTIME ORAL 05/25/19 21:00 06/24/19 20:59 05/25/19 20:30 Baclofen (Lioresal) 20 mg BID ORAL 05/25/19 09:00 06/24/19 08:59 05/26/19 09:28 Carvedilol (Coreg) 3.125 mg EVERY 12 HOURS ORAL 05/25/19 09:00 06/24/19 08:59 05/26/19 09:27 Docusate Sodium (Colace) 100 mg THREE TIMES A DAY ORAL 05/25/19 18:00 06/24/19 17:59 05/26/19 09:27 Duloxetine HCl (Cymbalta) 60 mg DAILY ORAL 05/25/19 09:00 06/24/19 08:59 05/26/19 09:27 Fenofibrate (Tricor) 54 mg DAILY ORAL 05/25/19 14:00 06/24/19 13:59 05/26/19 09:27 Furosemide (Lasix) 40 mg DAILY ORAL 05/25/19 09:00 06/24/19 08:59 05/26/19 09:28 Isosorbide Mononitrate (Imdur) 60 mg TID ORAL 05/25/19 09:00 06/24/19 08:59 Future hold 05/26/19 09:27 Magnesium Chloride (Slow-Mag) 1 tab BID ORAL 05/25/19 18:00 06/24/19 17:59 05/26/19 09:28 Pantoprazole (Protonix) 40 mg EVERY 12 HOURS ORAL 05/25/19 21:00 06/24/19 20:59 05/26/19 09:28 Potassium Chloride (K-Dur) 10 meq DAILY ORAL 05/25/19 09:00 06/24/19 08:59 05/26/19 09:27 Ranolazine (Ranexa ER 500mg) 500 mg Q12HR ORAL 05/25/19 09:00 06/24/19 08:59 05/26/19 09:28 Tamsulosin HCl (Flomax) 0.4 mg BEDTIME ORAL 05/25/19 21:00 06/24/19 20:59 05/25/19 20:33 Tramadol HCl (Ultram) 50 mg Q6H PRN ORAL Breakthrough pain 05/25/19 08:00 06/01/19 07:59 Deisy Kan MD May 26, 2019 12:03
--- NOTE | 2019-05-26 12:11 | Nephrology Progress Note ---
Assessment/Plan Problem List: (1) Renal failure (ARF), acute on chronic (2) Diabetic nephropathy (3) History of [place] (myocardial infarction) (4) History of hypertension (5) ACS (acute coronary syndrome) (6) Cardiomyopathy Assessment Renal failure: Likely chronic due to Diabetic and Hypertensive kidney disease ( 3+ Protein) Partly acute due to cardiac issue and diuretics ACS / CAD / s/p CABGS DM HTN Depression Anemia CHF , Cardiomyopathy with Ej Fx 40% Plan 2D echo 40% EjFx Kidney MAIKEL- Negative avoid nephrotoxics BP and BS in check Urine studies per orders IV Iron once Subjective ROS Limited/Unobtainable: No Constitutional: Reports: malaise Objective Objective Last 24 Hour Vital Signs Date Time Temp Pulse Resp B/P (MAP) Pulse Ox O2 Delivery O2 Flow Rate FiO2 05/26/19 09:27 150/98 05/26/19 09:27 59 150/98 05/26/19 08:47 Room Air 05/26/19 08:00 97.9 59 20 150/98 (115) 98 05/26/19 07:43 59 05/26/19 04:00 97.8 71 20 130/75 (93) 98 05/26/19 03:40 55 05/26/19 00:00 98.2 63 20 135/73 (93) 98 05/25/19 23:31 62 05/25/19 21:00 Room Air 05/25/19 20:33 61 125/60 05/25/19 20:00 98.2 61 20 125/60 (81) 96 05/25/19 19:04 62 05/25/19 18:18 124/48 05/25/19 16:00 97.1 59 20 124/48 (73) 96 05/25/19 16:00 53 05/25/19 13:00 135/64 Intake and Output 05/25/19 05/26/19 19:00 07:00 Intake Total 390 ml Balance 390 ml Intake Oral 390 ml # Voids 2 3 Laboratory Tests 05/25/19 20:41: Urine Color Pale yellow, Urine Appearance Clear, Urine pH 5, Urine Specific [place] 1.015, Urine Protein Negative, Urine Glucose (UA) Negative, Urine Ketones Negative, Urine Blood Negative, Urine Nitrite Negative, Urine Bilirubin Negative, Urine Urobilinogen Normal, Urine Leukocyte Esterase Negative, Urine RBC 0-2H, Urine WBC 0-2, Urine Squamous Epithelial Cells None, Urine Bacteria Few, Urine Eosinophils None seen, Urine Osmolality 342L, Urine Random Creatinine [Pending], Urine Random Microalbumin [Pending], Urine Random Sodium 60, Urine Microalbumin/Creatinine Ratio [Pending] 05/26/19 06:16: White Blood Count 8.7, Red Blood Count 3.85L, Hemoglobin 10.6L, Hematocrit 31.7L , Mean Corpuscular Volume 82, Mean Corpuscular Hemoglobin 27.6, Mean Corpuscular Hemoglobin Concent 33.6, Red Cell Distribution Width 13.3, Platelet Count 303, Mean Platelet Volume 6.2L, Neutrophils (%) (Auto) 57.5, Lymphocytes ( %) (Auto) 27.7, Monocytes (%) (Auto) 12.5H, Eosinophils (%) (Auto) 1.5, Basophils (%) (Auto) 0.7, Erythrocyte Sedimentation Rate 42H, Sodium Level 135L , Potassium Level 3.9, Chloride Level 100, Carbon Dioxide Level 25, Anion Gap 10 , Blood Urea Nitrogen 37H, Creatinine 2.2H, Estimat Glomerular Filtration Rate 29.8, Glucose Level 138H, Hemoglobin A1c 6.5H, Uric Acid 10.0H, Calcium Level 8.7, Phosphorus Level 4.6, Magnesium Level 1.8, Iron Level 33L, Total Iron Binding Capacity 333, Percent Iron Saturation 10L, Unsaturated Iron Binding 300 , Ferritin 58, Total Bilirubin 0.6, Gamma Glutamyl Transpeptidase 21, Aspartate Amino Transf (AST/SGOT) 15, Alanine Aminotransferase (ALT/SGPT) 19, Alkaline Phosphatase 38L, Total Creatine Kinase 89, Troponin I 0.041, C-Reactive Protein , Quantitative 1.8H, Pro-B-Type Natriuretic Peptide [Pending], Total Protein 8.5H, Albumin 3.7, Globulin 4.8, Albumin/Globulin Ratio 0.8L, Vitamin B12 Level 438, Folate [Pending], Thyroid Stimulating Hormone (TSH) 1.422 Height (Feet): 5 Height (Inches): 7.00 Weight (Pounds): 225 General Appearance: no apparent distress Cardiovascular: normal rate Respiratory/Chest: decreased breath sounds Abdomen: soft Nguyễn De La Rosa MD May 26, 2019 12:11
[2019-05-26] MEDS ORDERED: Iron Sucrose 200 MG in NS 110 ML IV SCH (13:00)
--- NOTE | 2019-05-26 14:11 | CDS Physician Query ---
Clarification is required for compliance, coding accuracy, and to reflect severity of illness for this patient Dear Akash Gonzáles MD Date: 05/26/2019 [facility] Hand/CDS Name: Shashi Cazares The patient is a 68-year-old white male, who presents with a chief complaint of chest pain. "CHF" documented in Consultation notes BNP: 955 ECHO EjF: 40% Please Clarify: Acuity [] Acute [] Chronic [] Acute on Chronic Type [] Systolic [] Diastolic [] Systolic & Diastolic (Combined) [] Other: Present on Admission: [] Yes [] No [] Clinically Undetermined Physician signature Date Please also document in your Progress Notes and/or Discharge Summary and indicate if the condition was present on admission. GUSTAVO
[2019-05-26 16:00] VITALS: BP 140/95
--- NOTE | 2019-05-26 16:07 | Internal Med Progress Note ---
Subjective Date of Service: May 26, 2019 Physician Name Marco Damico Attending Physician Mariano Galdamez MD Current Medications Medications (Trade) Dose Ordered Sig/Sebastian Route PRN Reason Start Time Stop Time Status Last Admin Dose Admin Allopurinol (allopurinoL) 300 mg DAILY ORAL 05/27/19 09:00 06/26/19 08:59 Aspirin (ASA) 81 mg DAILY ORAL 05/25/19 09:00 06/24/19 08:59 05/26/19 09:28 Atorvastatin Calcium (Lipitor) 80 mg BEDTIME ORAL 05/25/19 21:00 06/24/19 20:59 05/25/19 20:30 Baclofen (Lioresal) 20 mg BID ORAL 05/25/19 09:00 06/24/19 08:59 05/26/19 09:28 Carvedilol (Coreg) 3.125 mg EVERY 12 HOURS ORAL 05/25/19 09:00 06/24/19 08:59 05/26/19 09:27 Docusate Sodium (Colace) 100 mg THREE TIMES A DAY ORAL 05/25/19 18:00 06/24/19 17:59 05/26/19 13:20 Duloxetine HCl (Cymbalta) 60 mg DAILY ORAL 05/25/19 09:00 06/24/19 08:59 05/26/19 09:27 Fenofibrate (Tricor) 54 mg DAILY ORAL 05/25/19 14:00 06/24/19 13:59 05/26/19 09:27 Furosemide (Lasix) 40 mg DAILY ORAL 05/25/19 09:00 06/24/19 08:59 05/26/19 09:28 Isosorbide Mononitrate (Imdur) 60 mg TID ORAL 05/25/19 09:00 06/24/19 08:59 Future hold 05/26/19 13:20 Magnesium Chloride (Slow-Mag) 1 tab BID ORAL 05/25/19 18:00 06/24/19 17:59 05/26/19 09:28 Pantoprazole (Protonix) 40 mg EVERY 12 HOURS ORAL 05/25/19 21:00 06/24/19 20:59 05/26/19 09:28 Potassium Chloride (K-Dur) 10 meq DAILY ORAL 05/25/19 09:00 06/24/19 08:59 05/26/19 09:27 Ranolazine (Ranexa ER 500mg) 500 mg Q12HR ORAL 05/25/19 09:00 06/24/19 08:59 05/26/19 09:28 Tamsulosin HCl (Flomax) 0.4 mg BEDTIME ORAL 05/25/19 21:00 06/24/19 20:59 05/25/19 20:33 Tramadol HCl (Ultram) 50 mg Q6H PRN ORAL Breakthrough pain 05/25/19 08:00 06/01/19 07:59 Allergies: Coded Allergies: CLOPIDOGREL (Verified Allergy, Unknown, 05/24/19) ROS Limited/Unobtainable: No Constitutional: Reports: no symptoms HEENT: Reports: no symptoms Cardiovascular: Reports: chest pain Respiratory: Reports: no symptoms Gastrointestinal/Abdominal: Reports: no symptoms Genitourinary: Reports: no symptoms Neurologic/Psychiatric: Reports: no symptoms Subjective 68 YO M with history of coronary artery dis and previous myocardial infarction admitted with chest pain. Now NSTEMI. Cover for Int Rd-Dr Galdamez Objective Last Vital Signs Date Time Temp Pulse Resp B/P (MAP) Pulse Ox O2 Delivery O2 Flow Rate FiO2 05/26/19 13:20 135/97 05/26/19 12:00 98.1 59 22 97 05/26/19 08:47 Room Air Laboratory Tests Test 05/25/19 20:41 05/26/19 06:16 Urine Color Pale yellow Urine Appearance Clear Urine pH 5 (4.5-8.0) Urine Specific [place] 1.015 (1.005-1.035) Urine Protein Negative (NEGATIVE) Urine Glucose (UA) Negative (NEGATIVE) Urine Ketones Negative (NEGATIVE) Urine Blood Negative (NEGATIVE) Urine Nitrite Negative (NEGATIVE) Urine Bilirubin Negative (NEGATIVE) Urine Urobilinogen Normal MG/DL (0.0-1.0) Urine Leukocyte Esterase Negative (NEGATIVE) Urine RBC 0-2 /HPF (0 - 0) H Urine WBC 0-2 /HPF (0 - 0) Urine Squamous Epithelial Cells None /LPF (NONE/OCC) Urine Bacteria Few /HPF (NONE) Urine Eosinophils None seen (NONE SEEN) Urine Osmolality 342 mOsm/kg (429-449) L Urine Random Creatinine Pending Urine Random Microalbumin Pending Urine Random Sodium 60 mmol/L (20-110) Urine Microalbumin/Creatinine Ratio Pending White Blood Count 8.7 K/UL (4.8-10.8) Red Blood Count 3.85 M/UL (4.70-6.10) L Hemoglobin 10.6 G/DL (14.2-18.0) L Hematocrit 31.7 % (42.0-52.0) L Mean Corpuscular Volume 82 FL (80-99) Mean Corpuscular Hemoglobin 27.6 PG (27.0-31.0) Mean Corpuscular Hemoglobin Concent 33.6 G/DL (32.0-36.0) Red Cell Distribution Width 13.3 % (11.6-14.8) Platelet Count 303 K/UL (150-450) Mean Platelet Volume 6.2 FL (6.5-10.1) L Neutrophils (%) (Auto) 57.5 % (45.0-75.0) Lymphocytes (%) (Auto) 27.7 % (20.0-45.0) Monocytes (%) (Auto) 12.5 % (1.0-10.0) H Eosinophils (%) (Auto) 1.5 % (0.0-3.0) Basophils (%) (Auto) 0.7 % (0.0-2.0) Erythrocyte Sedimentation Rate 42 MM/HR (0-20) H Sodium Level 135 MMOL/L (136-145) L Potassium Level 3.9 MMOL/L (3.5-5.1) Chloride Level 100 MMOL/L (98-107) Carbon Dioxide Level 25 MMOL/L (21-32) Anion Gap 10 mmol/L (5-15) Blood Urea Nitrogen 37 mg/dL (7-18) H Creatinine 2.2 MG/DL (0.55-1.30) H Estimat Glomerular Filtration Rate 29.8 mL/min (>60) Glucose Level 138 MG/DL (74-106) H Hemoglobin A1c 6.5 % (4.3-6.0) H Uric Acid 10.0 MG/DL (2.6-7.2) H Calcium Level 8.7 MG/DL (8.5-10.1) Phosphorus Level 4.6 MG/DL (2.5-4.9) Magnesium Level 1.8 MG/DL (1.8-2.4) Iron Level 33 ug/dL (50-175) L Total Iron Binding Capacity 333 ug/dL (250-450) Percent Iron Saturation 10 % (15-50) L Unsaturated Iron Binding 300 ug/dL (112-346) Ferritin 58 NG/ML (8-388) Total Bilirubin 0.6 MG/DL (0.2-1.0) Gamma Glutamyl Transpeptidase 21 U/L (5-85) Aspartate Amino Transf (AST/SGOT) 15 U/L (15-37) Alanine Aminotransferase (ALT/SGPT) 19 U/L (12-78) Alkaline Phosphatase 38 U/L (46-116) L Total Creatine Kinase 89 U/L (26-308) Troponin I 0.041 ng/mL (0.000-0.056) C-Reactive Protein, Quantitative 1.8 mg/dL (0.00-0.90) H Pro-B-Type Natriuretic Peptide Pending Total Protein 8.5 G/DL (6.4-8.2) H Albumin 3.7 G/DL (3.4-5.0) Globulin 4.8 g/dL Albumin/Globulin Ratio 0.8 (1.0-2.7) L Vitamin B12 Level 438 PG/ML (193-986) Folate Pending Thyroid Stimulating Hormone (TSH) 1.422 uiU/mL (0.358-3.740) Intake and Output 05/25/19 05/26/19 19:00 07:00 Intake Total 390 ml Balance 390 ml Intake Oral 390 ml # Voids 2 3 Objective PHYSICAL EXAMINATION: GENERAL: The patient is well-developed, well-nourished white male, in no apparent distress. HEENT: Eyes, pupils are equal and responsive to light and accommodation. Extraocular movements are intact. NECK: Supple without lymphadenopathy. CHEST: Lungs are clear to auscultation bilaterally without wheezes or rales. CARDIOVASCULAR: Regular rhythm and rate. S1, S2 are normal without murmurs, rubs, or gallops. ABDOMEN: Soft, nontender, and nondistended. Positive bowel sounds. No evidence of hepatosplenomegaly. Currently, no rebound or guarding noted. EXTREMITIES: Negative for clubbing, cyanosis, or edema. NEUROMUSCULAR: Cranial nerves II through XII are grossly intact without focal deficits. Motor strength is 5/5 bilaterally. Deep tendon reflexes are 2+ plantar. RECTAL/GENITAL: Refused. Assessment/Plan Assessment/Plan ASSESSMENT: This is a 68-year-old white male. 1. Chest pain. 2. Coronary artery disease. 3. Congestive heart failure. 4. Acute renal failure. 5. Diabetes type 2. 6. Hypertension. 7. NSTEMI TREATMENT: 1. Chest pain/history of coronary artery disease/congestive heart failure. Cardiology consultation has been obtained with Dr. Akash Bill. Patient will require cardiac cath per recommendations of Cardiology. 2. Diabetes type 2. A NovoLog sliding scale has been instituted. 3. Acute renal failure. A Nephrology consultation is pending with Dr. Nguyễn De La Rosa. 4. Hypertension. Continue Coreg as above. 5. Await transfer to contracted facility for cardiac cath Marco Damico MD May 26, 2019 16:07
[2019-05-26 19:44] VITALS: BP 140/95
--- NOTE | 2019-05-27 02:45 | Consultation ---
DATE OF CONSULTATION: 05/26/2019 CARDIOLOGY CONSULTATION CONSULTING PHYSICIAN: Akash Bill M.D. REFERRING PHYSICIANS: 1. Mariano Galdamez M.D. 2. Deisy Kan M.D. REASON FOR REFERRAL: Chest pain. HISTORY OF PRESENT ILLNESS: This is a 68-year-old gentleman with history of coronary artery bypass surgery x3 in 2011 after myocardial infarction with subsequent stenting in 2017. Every now and then, he states he has some chest pain for which he takes nitroglycerin. He has had chest pain two nights ago that was not resolved with the nitroglycerin, he called the paramedics, was brought to the emergency room here at [facility]. He was admitted to the hospital. His troponin was minimally elevated subsequently and this consultation be requested. He does not have any chest pain now, but the pain lasts approximately three hours. He forgot to take his medications. There is no PND or orthopnea, although he sleeps in a recliner. He does not have any dizziness or lightheadedness. No heart pounding or palpitations. He tells me that the pain is a throbbing sensation in the chest, sometimes radiates to the right axilla and he feels that the pain is similar to what he had back in 2011 with a heart attack, but not nearly as strong. The chest pain started over the past few years for which he takes nitroglycerin for. PAST MEDICAL HISTORY: Positive for diabetes and high blood pressure and high cholesterol. He has had a heart attack. No cancer. No stroke. He does have a history of hepatitis B and C. No tuberculosis, no asthma, but he does have COPD. No ulcers. he has had some kidney problems. No liver problems or thyroid problems. No anemia. He does have some arthritis. No HIV, AIDS, or blood clots. He does have prostatic enlargement. No bleeding disorders. He has a history of atrial fibrillation for which he was cardioverted at the [facility] a number of years ago, but has apparently been in sinus since then. SOCIAL HISTORY: He used to be a smoker, drinker and alcoholic, actually he was a drug addict. He states he quit those in the 1980s and 90s and tobacco use, he stopped when he had his heart attack in 2010. He lives at home. REVIEW OF SYSTEMS: GASTROINTESTINAL: Negative. GENITOURINARY: He does have significant nocturia and incontinence and hesitancy. PULMONARY: Occasional wheezing when he has something . CONSTITUTIONAL: Negative. NEUROLOGIC: Numbness and tingling sensation in his right arm. PHYSICAL EXAMINATION: GENERAL: Shows to be obese middle-aged gentleman, in no respiratory distress. HEENT: Unremarkable. NECK: Supple. No jugular venous distention. LUNGS: Relatively clear to auscultation and percussion. CARDIAC: Regular rhythm. Not tachycardic. Not bradycardic. There is a systolic ejection murmur. ABDOMEN: Soft, nontender. Positive bowel sounds. Obese. EXTREMITIES: There is no edema. NEUROLOGICAL: He is awake, alert, responsive. LABORATORY AND DIAGNOSTIC DATA: White count 12.2 at the time of admission. Hemoglobin 11 and platelet count of 223,000. Sodium 136, potassium 3.8, chloride 100, bicarb of 27, BUN of 41, creatinine 2.2, and glucose of 171. His serum uric acid is 8.9 and calcium is 8.9. Magnesium 1.8. AST and ALT are normal. His troponin first one was 0.41, second was 0.11. A total cholesterol of 145 with LDL of 74 and HDL of 35. His urinalysis is fairly unremarkable. His urine sodium is 60. He had a chest x-ray performed in the emergency room that showed no acute disease processes. No definite infiltrates. Pulmonary vascular congestion. Sternotomy was noted. Enlarged heart. Aorta is moderately enlarged. His renal ultrasound that was performed also yesterday shows negative except for renal cysts. His vital signs, his blood pressure 130/75 with a heart rate of 55 to 71, temperature 97.8. His EKG shows sinus rhythm with T-wave inversions and ST-segment depression in 1 aVL and some biphasic T-waves in V4 and V5. Unfortunately, no old EKGs for comparison. Echocardiogram has been performed. Final reading is pending and telemetry data indicates he is basically in sinus and sinus bradycardia. ASSESSMENT AND PLAN: 1. Chest pain/non-ST elevation myocardial infarction. 2. Status post coronary artery bypass grafting and stenting, last one in 2017. 3. History of atrial fibrillation, status post cardioversion. 4. Hypertension. 5. Diabetes mellitus. 6. Renal insufficiency and questionable chronicity. 7. Benign prostatic hypertrophy by history. 8. History of hepatitis B and C. 9. History of substance abuse, quit in [address]. Dr. Galdamez and Dr. Kan, this patient was seen in cardiac consultation. The patient appears to be chest pain free at the present time, but the electrocardiographic abnormalities at the time of his presentation to the emergency room is of a concern. Echocardiogram performed, results are pending at this time. No old EKG for comparison to see if these are acute changes. Recommend repeating the cardiac enzymes and EKG. Await echocardiogram report. Nitro paste, aspirin, statins, he may required invasive therapy in the setting of the abnormal EKG and mildly abnormal cardiac enzymes. It is of note that I have searched through the records here and at [facility], no old EKGs are available. Akash Bill M.D. DR: FABIÁN JOB#: [id number] CC:
--- NOTE | 2019-05-28 15:52 | Discharge Summary ---
Discharge Summary Discharge Summary _ DATE OF ADMISSION: 05/25/2019 DATE OF DISCHARGE: 05/26/2019 DISCHARGED BY: Dr. Ross REASON FOR ADMISSION: 68 years old male with past medical history of coronary artery disease, history of CABG 2010 ,status post ND in 2017 with stent placement, hypertension , diabetes mellitus, presented for shortness of breath and chest pain. Patient reported chest pressure-like sensation, nonradiating. Patient received 1 spray of nitroglycerin and 325 mg of Aspirin, which improved his chest pain. Upon evaluation vital signs were stable. Pulse oximetry was stable on room air. Laboratory work-up revealed WBC 12.2, hemoglobin 11, hematocrit 32.7. Urinalysis revealed +3 protein, no evidence of urinary tract infection. BUN 37, creatinine 2.0. Glucose 108. Electrolytes stable. Troponin 0.041. ProBNP 955. EKG revealed sinus rhythm with T wave inversion and ST depression in 1 and aVL. In addition some biphasic T waves in V4 and V5. No old EKG was available for comparison. Chest x-ray demonstrated no acute cardiopulmonary pathology. Patient was admitted to telemetry floor for further management. CONSULTANTS: military aircraft designer Dr. Fly hoyos pulmonary Dr. Kan cereal popper Dr. De La Rosa [facility] COURSE: Patient admitted to telemetry floor. Second troponin was elevated 0.111, last troponin - 0.041. Echocardiogram demonstrated mild left ventricular enlargement with anteroseptal wall hypokinesis. Left ventricular ejection fraction 40 to 45%. Mild left ventricular hypertrophy. No evidence of pericardial effusion. Right ventricular systolic pressure of 20. Patient was on aspirin, tiesha nitrate, and statin. Anticoagulation as per Dr. villarreal. Pain management was addressed dressed Tin Recovery Worker recommended non-invasive evaluation in setting of abnormal EKG. Lipid panel revealed elevated triglycerides 189, stable total cholesterol, LDL 74. TriCor continue in addition to statin. Patient was educated on low-fat low-cholesterol cardiac diet Guideline directed medical therapy for congestive heart failure provided. GI prophylaxis provided. Supplemental oxygen provided and titrated to keep pulse oximetry above 92%, pulse oximetry was stable on room air. Renal parameters and electrolytes were closely monitored, electrolytes remained stable. Creatinine in range 2-2.2. Renal ultrasound revealed no evidence hydronephrosis. Bilateral normal kidney echogenicity. Per cereal popper, patient had acute on chronic renal failure. Chronic kidney failure was likely due to diabetic nephropathy and hypertensive kidney disease (+3 protein in urine). Renal failure was also partially acute due to cardiac issues and diuretics. News Copy Editor recommended to avoid nephrotoxic's. Blood sugar was closely monitored and remained stable ; hemoglobin A1c 6.5. Supportive care provided. Bowel regimen instituted. Placement was arranged to higher level of [facility] for further management. FINAL DIAGNOSES: Chest pain NSTEMI Coronary artery disease, status post CABG and ND with a stent History of atrial fibrillation, status post cardioversion Chronic anticoagulation CHF Cardiomyopathy, ejection fraction 40% Hypertension Diabetes mellitus Acute on chronic renal failure BPH History of substance abuse quit 1979 Depression DISCHARGE MEDICATIONS: See Medication Reconciliation list. DISCHARGE INSTRUCTIONS: Patient was transferred to higher level of care hospital for further management I have been assigned to dictate discharge summary for this account. I was not involved in the patient's management. Renetta Marrero NP May 28, 2019 15:52
== END 2019-05-26 20:01 | disposition short-term general hospital (02) | DRG 281 ==
LOC: EDBD 22:50 → EMR 22:58 → 3E 05-25 00:34 → EDBEDREQ 05-25 02:00 → 2E 05-25 02:32
DX: I21.4 Non-ST elevation (NSTEMI) myocardial infarction (principal); N17.9 Acute kidney failure, unspecified; I13.0 Hypertensive heart and chronic kidney disease with heart failure and stage 1 through stage 4 chronic kidney disease, or unspecified chronic kidney disease; I42.9 Cardiomyopathy, unspecified; I25.10 Atherosclerotic heart disease of native coronary artery without angina pectoris; Z95.1 Presence of aortocoronary bypass graft; Z88.8 Allergy status to other drugs, medicaments and biological substances; I25.2 Old myocardial infarction; J44.9 Chronic obstructive pulmonary disease, unspecified; Z95.5 Presence of coronary angioplasty implant and graft; Z79.4 Long term (current) use of insulin; I50.9 Heart failure, unspecified; N18.9 Chronic kidney disease, unspecified; E11.22 Type 2 diabetes mellitus with diabetic chronic kidney disease; Z79.01 Long term (current) use of anticoagulants; N40.0 Benign prostatic hyperplasia without lower urinary tract symptoms; F19.11 Other psychoactive substance abuse, in remission; F32.9 Major depressive disorder, single episode, unspecified; Z87.891 Personal history of nicotine dependence; F10.21 Alcohol dependence, in remission
CPT/HCPCS: 36415; 71045; 76770; 80053; 80061; 81001; 81003; 82043; 82550; 82553; 82607; 82728; 82746; 82977; 83036; 83540; 83550; 83735; 83880; 83935; 84100; 84300; 84443; 84484; 84550; 85025; 85651; 86140; 89050; 93005; 93306; 99285